=== PATIENT | female | born 1950 ===

== ENCOUNTER 2023-07-14 11:30 | Inpatient (IN) | payer OTHER ==
[2023-07-14] MEDS ORDERED: FARXIGA10 MG PO (13:57)
[2023-07-14] MEDS ORDERED: OMEPRAZOLE MAGN20 MG PO (13:57)
[2023-07-14] MEDS ORDERED: TENORMIN50 M1 (13:58)
[2023-07-14] MEDS ORDERED: IRBESARTAN150 MG PO (13:58)
[2023-07-14] MEDS ORDERED: SYNTHROID137 MCG (13:58)
[2023-07-14] MEDS ORDERED: METFORMIN HCL500 M3 (13:58)
[2023-07-20] MEDS ORDERED: CEFTRIAXONE SODIUM 2,000 MG VIAL ONE (11:32)
[2023-07-20] MEDS ORDERED: METRONIDAZOLE/SODIUM CHLORIDE 500 MG/100 ML PIGGYBACK IV ONE ×2 (11:32→13:00)
[2023-07-20] MEDS ORDERED: hydrALAZINE HCL 20 MG VIAL ONE (12:57)
[2023-07-20] MEDS ORDERED: hydrALAZINE HCL 20 MG VIAL IV ONE (13:00)
[2023-07-20] MEDS ORDERED: CEFTRIAXONE SODIUM 2,000 MG VIAL IV ONE (13:00)
[2023-07-20] MEDS ORDERED: SUGAMMADEX SODIUM 200 MG/2 ML VIAL IV ONE ×2 (13:54→14:00)
[2023-07-20] MEDS ORDERED: OxyCODONE HCL 5 MG TABLET (ROXICODONE) PO PRN (14:30)
[2023-07-20] MEDS ORDERED: ONDANSETRON HCL 2 MG/ML VIAL IV PRN (14:30)
[2023-07-20] MEDS ORDERED: INSULIN LISPRO 1,000 UNIT/10 ML UNITS SUBCUTANEO PRN ×2 (14:30→14:45)
[2023-07-20] MEDS ORDERED: DEXTROSE 50 % IN WATER 0.5 G/ML DISP.SYRIN IV PRN ×2 (14:30→14:45)
[2023-07-20] MEDS ORDERED: RINGERS SOLUTION,LACTATED 1,000 ML IV SCH (14:30)
[2023-07-20] MEDS ORDERED: MORPHINE SULFATE 4 MG/ML CARTRIDGE IV PRN (14:30)
[2023-07-20] MEDS ORDERED: ENALAPRILAT DIHYDRATE 1.25 MG/ML VIAL IV PRN (14:45)
[2023-07-20 16:41] LABS: HEMATOCRIT 40.3 % (36.0-45.00); HEMOGLOBIN 13.3 g/dL (12.0-15.00); MEAN CORPUSCULAR HEMOGLOBIN 29.3 pg (27.00-32.0); MEAN CORPUSCULAR HGB CONC 32.9 g/dl (32.0-36.0); PLATELET COUNT 190 K/uL (150-450); RED BLOOD COUNT 4.53 M/uL (4.00-6.00); RED CELL DISTRIBUTION WIDTH 14.1 % (11.5-14.5)
[2023-07-20 16:55] LABS: ALBUMIN 2.9 gm/dL (3.4-5.0); CALCIUM 8.3 mg/dL (8.5-10.1); CREATININE SERUM 0.9 mg/dL (0.55-1.02); GFR 61.37; MAGNESIUM 1.8 mg/dL (1.8-2.4); PHOSPHOROUS 3.3 mg/dL (2.5-4.9); POTASSIUM 3.83 mEq/L (3.5-5.1)
[2023-07-20] MEDS ORDERED: GABAPENTIN 300 MG CAPSULE PO SCH (17:00)
[2023-07-20] MEDS ORDERED: HYOSCYAMINE SULFATE 0.125 MG TAB.SUBL SL SCH (17:00)
[2023-07-20] MEDS ORDERED: POLYETHYLENE GLYCOL 3350 17 GM BLIST.PACK PO SCH (17:00)
[2023-07-20] MEDS ORDERED: ACETAMINOPHEN 500 MG GEL..CAP PO SCH (20:00)
[2023-07-20] MEDS ORDERED: CELECOXIB 200 MG CAPSULE PO SCH (21:00)
[2023-07-20] MEDS ORDERED: FAMOTIDINE/PF 20 MG/2 ML VIAL IV PUSH SCH (21:00)
[2023-07-21] MEDS ORDERED: PATIENTS OWN MEDICATION (MEDICAMENTO EN PISO) PO SCH (06:00)
[2023-07-21] MEDS ORDERED: ATENOLOL 50 MG TABLET PO SCH (09:00)
[2023-07-21] MEDS ORDERED: IRBESARTAN 150 MG TABLET PO SCH (09:00)
[2023-07-21 15:17] LABS: HEMATOCRIT 38.3 % (36.0-45.00); HEMOGLOBIN 12.7 g/dL (12.0-15.00); MEAN CELL VOLUME 88.6 fL (80.00-100.00); MEAN CORPUSCULAR HEMOGLOBIN 29.3 pg (27.00-32.0); MEAN CORPUSCULAR HGB CONC 33.1 g/dl (32.0-36.0); PLATELET COUNT 171 K/uL (150-450); RED BLOOD COUNT 4.32 M/uL (4.00-6.00)
[2023-07-21 15:36] LABS: CALCIUM 8.5 mg/dL (8.5-10.1); CREATININE SERUM 1.22 mg/dL (0.55-1.02); GFR 43.2; MAGNESIUM 1.8 mg/dL (1.8-2.4); PHOSPHOROUS 3.1 mg/dL (2.5-4.9); POTASSIUM 3.76 mEq/L (3.5-5.1)
[2023-07-21] MEDS ORDERED: ENOXAPARIN SODIUM 40 MG/0.4 ML SYRINGE SUBCUTANEO SCH (17:00)
[2023-07-22 06:36] LABS: HEMATOCRIT 33.6 % (36.0-45.00); HEMOGLOBIN 11.5 g/dL (12.0-15.00); MEAN CELL VOLUME 89.8 fL (80.00-100.00); MEAN CORPUSCULAR HEMOGLOBIN 30.8 pg (27.00-32.0); MEAN CORPUSCULAR HGB CONC 34.3 g/dl (32.0-36.0); PLATELET COUNT 150 K/uL (150-450); RED BLOOD COUNT 3.73 M/uL (4.00-6.00); RED CELL DISTRIBUTION WIDTH 13.5 % (11.5-14.5)
[2023-07-22 07:14] LABS: CALCIUM 8.2 mg/dL (8.5-10.1); CREATININE SERUM 1.08 mg/dL (0.55-1.02); GFR 49.73; PHOSPHOROUS 3.2 mg/dL (2.5-4.9); POTASSIUM 4.18 mEq/L (3.5-5.1)
[2023-07-22] MEDS ORDERED: ENOXAPARIN SODIUM 40 MG/0.4 ML SYRINGE SUBCUTANEO SCH (09:00)
[2023-07-22] MEDS ORDERED: OxyCODONE HCL 5 MG TABLET (ROXICODONE) PO PRN (21:30)
[2023-07-23] MEDS ORDERED: FAMOTIDINE/PF 20 MG/2 ML VIAL IV PUSH SCH (09:00)
[2023-07-23] MEDS ORDERED: NEURONTIN300 MG PO (09:10)
[2023-07-23] MEDS ORDERED: PRILOSEC OTC20 MG PO (09:10)
[2023-07-23] MEDS ORDERED: INTESTINEX680 M1 PO (09:10)
[2023-07-23] MEDS ORDERED: ACETAMINOPHEN500 M2 PO (09:10)
== END 2023-07-23 10:38 | disposition home or self-care (01) | DRG 330 ==
LOC: SURG 07-20 08:46 → O/R 07-20 08:46 → SURH 07-20 10:15 → SURG 07-20 14:25 → SURH 07-22 16:06
PROVIDERS: Internal Medicine Geriatric Medicine; ADMIT Surgery; ATTEND Surgery
PROC: 0DBP4ZZ Excision of Rectum, Percutaneous Endoscopic Approach (ICD-10-PCS; 2023-07-20)
PROC: 07BB4ZZ Excision of Mesenteric Lymphatic, Percutaneous Endoscopic Approach (ICD-10-PCS; 2023-07-20)
PROC: 0DTN4ZZ Resection of Sigmoid Colon, Percutaneous Endoscopic Approach (ICD-10-PCS; principal; 2023-07-20 10:15)
DX: D12.7 Benign neoplasm of rectosigmoid junction (principal); K92.1 Melena; R59.0 Localized enlarged lymph nodes